=== PATIENT | male | born 2000 | race Caucasian/White ===

== ENCOUNTER 2021-11-29 15:23 | Emergency (ER) | payer MEDICAID ==
[~2021-11-29] VITALS: Ht 167.6 cm; Wt 89.0 kg
[2021-11-29] MEDS ORDERED: SODIUM CHLORIDE 0.9% 1,000 ML IV ONE (16:45)
[2021-11-29] MEDS ORDERED: KETOROLAC 30MG/ML VIAL IV STA (16:45)
[2021-11-29] MEDS ORDERED: ONDANSETRON HCL 4MG/2ML INJ IV STA (16:45)
[2021-11-29 17:09] LABS: CLARITY URINE CLEAR (CLEAR); COLOR URINE YELLOW (YELLOW); KETONES URINE TRACE (NEGATIVE); LEUKOCYTE ESTERASE URINE NEGATIVE (NEGATIVE); NITRITE URINE NEGATIVE (NEGATIVE); OCCULT BLOOD URINE NEGATIVE (NEGATIVE); PROTEIN URINE NEGATIVE (NEGATIVE); SPECIFIC GRAVITY URINE 1.025 (1.005-1.030)
[2021-11-29 17:19] VITALS: BP 148/88
[2021-11-29 17:20] LABS: BASOPHILS % 0.9 % (0.0-2.0); EOSINOPHILS % 1.9 % (0.0-5.0); HEMATOCRIT. 46.1 % (42.0-52.0); HEMOGLOBIN. 15.6 g/dL (14.0-18.0); LYMPHOCYTES % 25.6 % (20.0-50.0); MEAN CORPUSCULAR VOLUME 91.5 fL (80.0-94.0); MEAN PLATELET VOLUME 8.3 fl (7.4-10.4); MONOCYTES % 6.8 % (2.0-8.0); NEUTROPHILS % 64.8 % (40.0-76.0); PLATELET 336 x1000/uL (130-400); RED BLOOD CELL COUNT 5.04 mill/uL (4.7-6.1); RED CELL DISTRIBUTION WIDTH 12.8 % (11.6-14.6)
[2021-11-29 17:28] LABS: *AMPHETAMINES SCREEN URINE NEGATIVE (NEGATIVE); *BARBITURATES SCREEN URINE NEGATIVE (NEGATIVE); *BENZODIAZEPINES SCREEN URINE NEGATIVE (NEGATIVE); *COCAINE SCREEN URINE NEGATIVE (NEGATIVE); CANNABINOID URINE SCREEN PRESUMTIVE POSITIVE (NEGATIVE); METHADONE URINE SCREEN NEGATIVE (NEGATIVE); OPIATES URINE SCREEN NEGATIVE (NEGATIVE); PHENCYCLIDINE URINE SCREEN NEGATIVE (NEGATIVE)
[2021-11-29 17:29] LABS: CHLORIDE 109 mEq/L (98-107)
[2021-11-29 17:37] LABS: ETHANOL BLOOD < 10 mg/dL
[2021-11-29] MEDS ORDERED: ONDA4TAB50 MT (18:08)
[2021-11-29] MEDS ORDERED: IBUP-2029 MT (18:08)
== END 2021-11-29 18:26 | disposition home or self-care (01) ==
LOC: ER 15:23
DX: A08.4 Viral intestinal infection, unspecified (principal)
CPT/HCPCS: 36415; 80053; 80305; 80320; 81003; 83690; 85025; 96374; 96375; 99284; J1885; J2405; J7030; G0480

== ENCOUNTER 2021-12-05 14:12 | Emergency (ER) | payer MEDICAID ==
[~2021-12-05] VITALS: Ht 175.3 cm; Wt 91.0 kg
[~2021-12-05 14:12] MED LIST: IBUP-2029 MT; ONDA4TAB50 MT
[2021-12-05 14:16] VITALS: BP 156/98
[2021-12-05] MEDS ORDERED: GUAI600T26 MT (16:08)
[2021-12-05] MEDS ORDERED: IBUP-2030 MT (16:08)
== END 2021-12-05 16:24 | disposition home or self-care (01) ==
LOC: ER 14:23
DX: J06.9 Acute upper respiratory infection, unspecified (principal)
CPT/HCPCS: 71045; 99283